=== PATIENT | female | born 1990 | race Caucasian/White ===

== ENCOUNTER 2017-07-10 19:51 | Emergency (ER) | payer OTHER ==
[~2017-07-10] VITALS: Ht 157.5 cm; Wt 68.0 kg
[~2017-07-10 19:51] MED LIST: ALBU0.0912 IH
[2017-07-10 19:57] VITALS: BP 130/74
--- NOTE | 2017-07-10 20:03 | NUR ---
PT AMBULATED TO ER CHAIR D.
--- NOTE | 2017-07-10 20:05 | NUR ---
PATIENT IS A 27 Y/O FEMALE WHO PRESENTS TO THE ED C/O CHEST PAIN. PT STATES, "MY CHEST HAS BEEN HURTING SINCE YESTERDAY." PT DENIES PAIN AT THIS TIME, REPORTS DISCOMFORT. PT REPORTS SOB, LUNG SOUNDS CLEAR BL. PT REPORTS NAUSEA DENIES VOMITING/DIARRHEA. PT AAOX4, RR EVEN/UNLABORED. PT REPOSITIONED FOR COMFORT, PT SITTING IN CHAIR. ER MD DR. GREWAL NOTIFIED. WILL CONTINUE TO MONITOR.
[2017-07-10] MEDS ORDERED: METOCLOPRAMIDE 10 MG TAB PO ONE (20:50)
[2017-07-10] MEDS ORDERED: DICYCLOMINE HCL LIQUID 20 MG, ALUMINUM HYD/MAG/SIMETHICONE 30 ML, LIDOCAINE VISCOUS 2% ... PO ONE ×3 (20:50)
[2017-07-10] MEDS ORDERED: FAMOTIDINE 20 MG TAB PO ONE (20:50)
[2017-07-10 21:38] VITALS: BP 125/82
--- NOTE | 2017-07-10 21:38 | NUR ---
Patient discharged with v/s stable. Written and verbal after care instructions given and explained. Patient alert, oriented and verbalized understanding of instructions. Ambulatory with steady gait. All questions addressed prior to discharge. ID band removed. Patient advised to follow up with PMD. Rx of REGLAN 5MG AND MAALOX 15ML given. Patient educated on indication of medication including possible reaction and side effects. Opportunity to ask questions provided and answered.
== END 2017-07-10 21:38 | disposition home or self-care (01) ==
LOC: MED 19:51
DX: K21.9 Gastro-esophageal reflux disease without esophagitis (principal)
CPT/HCPCS: 93005; 99284; J8597

== ENCOUNTER 2018-06-26 19:03 | Emergency (ER) | payer OTHER ==
[~2018-06-26] VITALS: Ht 160 cm; Wt 54.4 kg
[2018-06-26 19:12] VITALS: BP 119/72
--- NOTE | 2018-06-26 19:15 | NUR ---
TO LOBBY A/E BED, RADHA MARMOLEJO, LEESA NOTED
--- NOTE | 2018-06-26 19:52 | NUR ---
PT AMBULATED TO BED 8
--- NOTE | 2018-06-26 19:55 | NUR ---
28/F PRESENTS TO ED, C/O PERSISTENT THROBBING HEADACHE X1 WEEK. PT REPORTS NAUSEA, DIZZINESS. REPORTS INTERMITTENT SOB THAT RESOLVES. DENIES TRAUMA, FEVER, OR VISUAL DISTURBANCES. PT HAS BEEN TAKING TYLENOL AND IBUPROFEN WITH LITTLE RELIEF, LAST DOSE AT 1700. PT AOX4, GCS 15, RR EVEN AND UNLABORED. HX ASTHMA, GERD RX NEXIUM
[2018-06-26] MEDS ORDERED: NACL 0.9% 1,000 ML IV ONE (20:31)
[2018-06-26] MEDS ORDERED: METOCLOPRAMIDE 10 MG/2 ML INJ VIAL IVP ONE (20:35)
[2018-06-26] MEDS ORDERED: diphenhydrAMINE 50 MG/ML VIAL IVP ONE (20:35)
[2018-06-26 20:55] LABS: BASOPHILS # (AUTO) 0.1 K/uL (0.00-0.22); BASOPHILS % (AUTO) 0.6 % (0.0-2.0); EOSINOPHILS # (AUTO) 0.2 K/uL (0-0.4); EOSINOPHILS % (AUTO) 1.8 % (0.0-4.0); HEMATOCRIT 39.3 % (36-48); HEMOGLOBIN 12.2 g/dL (12.0-16.0); LYMPHOCYTES % (AUTO) 35.2 % (20.5-51.1); MEAN CORPUSCULAR HEMOGLOBIN 24 pg (27-31); MEAN CORPUSCULAR HGB CONC 31 g/dL (33-37); MEAN CORPUSCULAR VOLUME 77.3 fL (80-94); MONOCYTES # (AUTO) 0.8 K/uL (0.8-1.0); MONOCYTES % (AUTO) 7.2 % (1.7-9.3); NEUTROPHILS # (AUTO) 6.2 K/uL (1.8-7.7); NEUTROPHILS % (AUTO) 55.2 % (42.2-75.2); PLATELET COUNT (AUTO) 283 K/uL (140-450); RED BLOOD CELL COUNT(AUTO) 5.08 MIL/uL (4.20-5.40); WHITE BLOOD COUNT (AUTO) 11.3 K/uL (4.8-10.8)
--- NOTE | 2018-06-26 20:55 | NUR ---
PATIENT TAKEN TO CT VIA BILLRLIONEL WITH TECH.
[2018-06-26 21:14] LABS: ANION GAP 6.1 (8-16); CREATININE 0.7 mg/dL (0.6-1.3); POTASSIUM 4.1 mmol/L (3.5-5.1)
[2018-06-26 21:18] LABS: APPEARANCE,URINE CLEAR (CLEAR); BILIRUBIN,URINE NEGATIVE (NEGATIVE); BLOOD, URINE TRACE-I (NEGATIVE); COLOR,URINE YELLOW (YELLOW); LEUKOCYTE ESTERASE ,URINE TRACE (NEGATIVE); NITRITE, URINE NEGATIVE (NEGATIVE); PH,URINE 6.5 (5.0-9.0); UGLUCOSE NEGATIVE (NEGATIVE)
[2018-06-26 21:20] LABS: RBC,URINE 0-5 (RARE) /HPF (0-5); WBC,URINE 0-5 (RARE) /HPF (0-5)
[2018-06-26 22:04] VITALS: BP 98/57
== END 2018-06-26 22:04 | disposition home or self-care (01) ==
LOC: MED 19:03
DX: R51 Headache (principal); R68.83 Chills (without fever); R11.0 Nausea; J45.909 Unspecified asthma, uncomplicated; K21.9 Gastro-esophageal reflux disease without esophagitis; Z79.899 Other long term (current) drug therapy; Z88.6 Allergy status to analgesic agent; Z88.5 Allergy status to narcotic agent
CPT/HCPCS: 36415; 70450; 80048; 81001; 81025; 85025; 96374; 96375; 99284; J1200; J2765; J7030

== ENCOUNTER 2018-09-03 18:05 | Emergency (ER) | payer OTHER ==
[~2018-09-03] VITALS: Ht 160 cm; Wt 66.2 kg
[2018-09-03 18:16] VITALS: BP 122/85
--- NOTE | 2018-09-03 18:20 | NUR ---
BIB SELF. AAO X4. C/O RLQ AND LOWER BACK PAIN X4 DAYS. PT REPORTS CONSTANT PAIN IN BL LOWER BACK AT 7/10 THAT RADIATES TO FLANKS, AND SHARP RLQ PAIN AT 3/10 WITH TOUCH. DENIES FEVER, VOMITING, DIARRHEA. REPORTS NAUSEA. HOB UP. BED SIDE RAILS UP X1. ON LOW BED POSITION, LOCKED. ER MADE AWARE OF PT STATUS.
--- NOTE | 2018-09-03 19:19 | NUR ---
Pt report given to ERIC Harper. Transfer of care at this time.
--- NOTE | 2018-09-03 19:20 | NUR ---
RECEIVED REPORT FROM ERIC FORDE.
[2018-09-03] MEDS ORDERED: KETOROLAC 30 MG/ML VIAL IM ONE (19:30)
--- NOTE | 2018-09-03 19:31 | NUR ---
PT TAKEN TO CT.
[2018-09-03 19:35] LABS: APPEARANCE,URINE CLEAR (CLEAR); BILIRUBIN,URINE NEGATIVE (NEGATIVE); BLOOD, URINE 1+ (NEGATIVE); COLOR,URINE YELLOW (YELLOW); LEUKOCYTE ESTERASE ,URINE TRACE (NEGATIVE); NITRITE, URINE NEGATIVE (NEGATIVE); UGLUCOSE NEGATIVE (NEGATIVE)
--- NOTE | 2018-09-03 19:39 | NUR ---
PT RETURNED FROM CT.
[2018-09-03] MEDS ORDERED: IBUPROFEN 600 MG TAB PO ONE (19:45)
[2018-09-03 19:57] LABS: BASOPHILS # (AUTO) 0.1 K/uL (0.00-0.22); BASOPHILS % (AUTO) 0.5 % (0.0-2.0); EOSINOPHILS # (AUTO) 0.1 K/uL (0-0.4); EOSINOPHILS % (AUTO) 1.1 % (0.0-4.0); HEMATOCRIT 37.1 % (36-48); HEMOGLOBIN 11.7 g/dL (12.0-16.0); LYMPHOCYTES # (AUTO) 2.9 K/uL (2.5-16.5); LYMPHOCYTES % (AUTO) 25.6 % (20.5-51.1); MEAN CORPUSCULAR HEMOGLOBIN 24 pg (27-31); MEAN CORPUSCULAR HGB CONC 32 g/dL (33-37); MEAN CORPUSCULAR VOLUME 76.9 fL (80-94); MONOCYTES # (AUTO) 0.7 K/uL (0.8-1.0); NEUTROPHILS # (AUTO) 7.5 K/uL (1.8-7.7); NEUTROPHILS % (AUTO) 66.8 % (42.2-75.2); PLATELET COUNT (AUTO) 283 K/uL (140-450); RED BLOOD CELL COUNT(AUTO) 4.82 MIL/uL (4.20-5.40); WHITE BLOOD COUNT (AUTO) 11.3 K/uL (4.8-10.8)
[2018-09-03 20:01] LABS: WBC,URINE 0-5 /HPF (0-5)
[2018-09-03 20:28] LABS: ALBUMIN 3.5 g/dL (3.4-5.0); CARBON DIOXIDE 28.3 mmol/L (21-32); CREATININE 0.6 mg/dL (0.6-1.3); POTASSIUM 3.3 mmol/L (3.5-5.1); TOTAL BILIRUBIN 0.1 mg/dL (0.0-1.0)
[2018-09-03 20:59] VITALS: BP 127/76
--- NOTE | 2018-09-03 20:59 | NUR ---
Patient discharged with v/s stable. Written and verbal after care instructions given and explained. Patient alert, oriented and verbalized understanding of instructions. Ambulatory with steady gait. All questions addressed prior to discharge. ID band removed. Patient advised to follow up with PMD. Rx of NAPROSYN 500MG AND KEFLEX 500MG given. Patient educated on indication of medication including possible reaction and side effects. Opportunity to ask questions provided and answered.
== END 2018-09-03 20:59 | disposition home or self-care (01) ==
LOC: MED 18:05
DX: N39.0 Urinary tract infection, site not specified (principal); J45.909 Unspecified asthma, uncomplicated; K21.9 Gastro-esophageal reflux disease without esophagitis; Z88.5 Allergy status to narcotic agent; Z79.899 Other long term (current) drug therapy
CPT/HCPCS: 36415; 80053; 81001; 81025; 83690; 85025; 87086; 99284; J1885